=== PATIENT | female | born 1975 | race Caucasian/White ===

== ENCOUNTER → 2019-04-04 13:16 | Outpatient (CLI) | payer OTHER ==
--- NOTE | 2019-04-09 13:29 | ST ---
PATIENT:RAMSES GODDARD MEDICAL RECORD: [id number] SEX: F LOCATION:[facility] ORDER #: ADMISSION DATE: 04/04/19 AGE OF PATIENT: 43 REFERRING PHYSICIAN: INTERPRETING PHYSICIAN: ALKA DIEGO MD DATE OF SERVICE: 04/04/2019 PROCEDURE: Treadmill stress test. TECHNIQUE: Bassline ECG is normal. Exercise for 9 minutes and 30 seconds on Yaya protocol. Maximum heart rate 163 beats per minute, greater than 85% maximum predicted. No ECG changes for ischemia. No symptoms of ischemia. Normal blood pressure response to exercise. No arrhythmias noted. Good exercise tolerance for age. TRANSINT:[id number] Voice Confirmation ID: [id number] DOCUMENT ID: [id number] ALKA DIEGO MD at 1329 CC: [id number] DICTATION DATE: 04/05/19 1301 KEY ACCOUNT REPRESENTATIVE: 04/06/19 0621 DEP CLI 04/04/[address] [id number]
--- NOTE | 2019-04-09 13:29 | EC ---
PATIENT:RAMSES GODDARD DATE OF SERVICE: 04/04/19 SEX: F MEDICAL RECORD: [id number] DATE OF : 71 LOCATION:[facility] AGE OF PATIENT: 43 ADMISSION DATE: 04/04/19 REFERRING PHYSICIAN: INTERPRETING PHYSICIAN: ALKA DIEGO MD ECHOCARDIOGRAM REPORT ECHO CHARGES 4 ECHO COMPLETE Date: 04/04/19 CLINICAL DIAGNOSIS: HEART MURMUR ECHOCARDIOGRAPHIC MEASUREMENTS (adult normal given) AC root (d.<3.7cm) 2.6 cm LV Septum d (<1.2 cm> 0.90 cm Valve Excursion 1.1 cm LV Septum (systole) 1.2 cm Left Atria (s.<4.0cm> 2.8 cm LVPW d(<1.2cm) 1.0 cm RV (d.<2.3cm) 3.6 cm LVPW (sytole) 1.8 cm LV diastole(<5.6CM) 3.9 cm MV E-F(>70mm/sec) cm LV systole 2.2 cm LVOT Diameter 1.9 cm MV exc.(>10mm) 1.0 cm Est.ejection fraction (50-75%) % DOPPLER: LVIT cm/sec A 72.0 cm/sec E 121 cm/sec LA cm/sec RVSP 33 mmHg LVOT 139 cm/sec AOP1/2T m/s Asc. Ao 161 cm/sec RVOT 92 cm/sec RA cm/sec PA 105 cm/sec AV Gradient Peak 10.34mmHg AV Mean 5.35 mmHg AV Area 2.2 cm MV Gradient Peak 8.68 mmHg MV Mean 2.35 mmHg MV Area cm COMMENTS: Finishing Range Supervisor: 2 EDINSON HUGHES Manager Lab: 3 Dr. Pozo TAPE# PACS Pericardial Effusion N DATE OF SERVICE: Adequate 2D, color flow, spectral Doppler, and M-mode. No LVH. LV internal dimension is normal. Wall motion is normal. EF is greater than or equal to 55%. Aortic valve is tricuspid. No evidence of stenosis by Doppler interrogation. Left atrium normal at 2.8 cm. Mitral valve shows no prolapse. Trace MR. Right-sided chambers grossly normal. Trace TR. TRANSINT:[id number] Voice Confirmation ID: [id number] DOCUMENT ID: [id number] ECHOCARDIOGRAM REPORT [id number] RAMSES GODDARD ALKA DIEGO MD at 1329 CC: [id number] DICTATION DATE: 04/05/19 1311 ARCHITECT MARINE: 04/05/19 1329 DEP CLI 04/04/19 [id number] [place] [address]
== END | disposition home or self-care (01) ==
LOC: D.HCCECHO 13:16
PROVIDERS: ATTEND Internal Medicine Interventional Cardiology
DX: R01.1 Cardiac murmur, unspecified (principal)

== ENCOUNTER → 2019-04-17 09:11 | Outpatient (CLI) | payer OTHER | END | disposition home or self-care (01) | LOC: D.OPS 09:11 | PROVIDERS: ATTEND Surgery | DX: K44.9 Diaphragmatic hernia without obstruction or gangrene (principal) ==

== ENCOUNTER 2019-06-13 07:49 | Inpatient (IN) | payer OTHER ==
[~2019-06-13] VITALS: Ht 167.6 cm; Wt 76.4 kg
[2019-06-15] MEDS ORDERED: NEXIUM40 MG PO (08:24)
[2019-06-15] MEDS ORDERED: LISINOPRIL-HCT1 EAC4 PO (08:24)
[2019-06-15] MEDS ORDERED: PRAVACHOL40 MG PO (08:25)
[2019-06-15 09:09] LABS: HEMATOCRIT 42.2 % (36.0-48.0); HEMOGLOBIN 14.2 g/dL (12-16); MCH 30.9 pg (26.0-34.0); MCHC 33.6 g/dL (31.0-37.0); MCV 91.9 fL (80.0-100.0); MEAN PLATELET VOLUME 8.9 fL (7.4-10.4); RBC 4.59 10x6/uL (4.00-5.40); RDW 12.4 % (11.5-14.5); WBC 7.6 10x3/uL (4.8-10.8)
[2019-06-15 09:12] LABS: CALC OSMOLALITY 278 mosm/kg (275-300); CALCIUM 8.8 mg/dL (8.5-10.1); CARBON DIOXIDE 32.3 mmol/L (21.0-32.0); CHLORIDE - SERUM 104 mmol/L (98-107); CREATININE - SERUM 0.8 mg/dL (0.6-1.3); GLUCOSE 88 mg/dL (74-106); POTASSIUM - SERUM 3.9 mmol/L (3.5-5.1); SODIUM 140 mmol/L (136-145); UREA NITROGEN 15 mg/dL (7-18); eGFR NON AFRICAN AMERICAN 82 mL/min (90-120)
[2019-06-18] MEDS ORDERED: COLACE100 MG PO (06:15)
[2019-06-18 06:17] VITALS: BP 104/68; BMI 27.1
--- NOTE | 2019-06-18 09:45 | NUR ---
OPA IN AIRWAY ON ADMIT
--- NOTE | 2019-06-18 10:18 | NUR ---
EKG ORDERED FOR PT. C/O CHEST PAIN PER DR FLORES. EKG COMPLETE @1007 NORMAL SINUS
--- NOTE | 2019-06-18 10:45 | NUR ---
REC'D TO ROOM 2236 EASILY TO AROUSED WHEN NAME IS CALLED. RESP EVEN AND UNLABORED WITH NO DISTRESS NOTED. CAN EXPRESS NEEDS AND WANTS. C/O ABD PAIN RATING 8/10 ON PAIN SCALE. WAS MEDICATED WITH TORADOL @ 0945 IN SURGERY. C/L AND AT BEDSIDE.
[2019-06-18 10:48] VITALS: BP 116/67
[2019-06-18 12:43] VITALS: BP 126/53
--- NOTE | 2019-06-18 19:20 | NUR ---
UP IN BED. ALERT AND ORIENTED TIMES 4. ABLE TO VOICE ALL NEEDS. COMPLAINS OF GONZALEZ AT THIS TIME. TYLENOL WILL BE GIVEN ACCORDING TO MAR. IV TO RIGHT AC IS PATENT WITH FLUIDS INFUSING PER ORDERS VIA PUMP. WILL NOTE ANY CHANGE.
[2019-06-18 20:00] VITALS: BP 121/66
--- NOTE | 2019-06-18 20:13 | NUR ---
I have reviewed this patient and I concur with the Shift Assessment completed by the Licensed Practical Nurse today this shift.
[2019-06-18 20:14] VITALS: BP 116/67; Ht 167.6 cm; Wt 76.4 kg
[2019-06-19] VITALS: BP 120/71
--- NOTE | 2019-06-19 03:02 | NUR ---
I have reviewed this patient and I concur with the Shift Assessment completed by the Licensed Practical Nurse today this shift.
--- NOTE | 2019-06-19 03:30 | NUR ---
COMPLAINTS OF PAIN TO HEAD, NECK, SHOULDER AREA, TREATED WITH PAIN MEDICATION PER MAR. HAS NOT RESTED WELL THIS SHIFT, SOME NAUSEA NOTED. WILL NOTE ANY CHANGE.
[2019-06-19 04:00] VITALS: BP 125/86
[2019-06-19 04:39] LABS: BASOPHILS 0.1 % (0-2); EOSINOPHILS 0.1 % (0-7); HEMATOCRIT 36.4 % (36.0-48.0); HEMOGLOBIN 12.3 g/dL (12-16); IMMATURE GRANULOCYTES 0.2 % (0-5); LYMPHOCYTES 10.3 % (15-50); MCH 30.6 pg (26.0-34.0); MCHC 33.8 g/dL (31.0-37.0); MCV 90.5 fL (80.0-100.0); MEAN PLATELET VOLUME 9.2 fL (7.4-10.4); MONOCYTES 6.3 % (2-11); PLATELET COUNT 283 10x3/uL (130-400); RBC 4.02 10x6/uL (4.00-5.40); RDW 12.5 % (11.5-14.5); WBC 14.8 10x3/uL (4.8-10.8)
[2019-06-19 05:01] LABS: ALBUMIN 3.1 g/dL (3.4-5.0); ANION GAP 12.1 mmol/L (8-16); BILIRUBIN - TOTAL 0.48 mg/dL (0.2-1.3); CALCIUM 8.2 mg/dL (8.5-10.1); CARBON DIOXIDE 27.8 mmol/L (21.0-32.0); CREATININE - SERUM 0.9 mg/dL (0.6-1.3)
[2019-06-19 05:05] LABS: POTASSIUM - SERUM 2.9 mmol/L (3.5-5.1)
--- NOTE | 2019-06-19 07:28 | NUR ---
PT SITTING UP IN BED WITH SPOUSE AT BEDSIDE. RESP EVEN AND UNLABORED. PT REQUESTING INFORMATION REGARDING TIME SWALLOW STUDY WILL BE PERFORMED. INSTRUCTED PT TO REMAIN NPO UNTIL FOLLOWING PROCEDURE. PT VOICES UNDERSTANDING. IV TO RIGHT AC WITH LR @ 75ML/HR INFUSING VIA PUMP. SITE WITHOUT REDNESS OR EDEMA. LAP SITES X 4 TO ABDOMEN, BS HYPOACTIVE. DENIES FURTHER NEEDS AT THIS TIME. CL WITHIN REACH. ENCOURAGED TO CALL WITH NEEDS. CONTINUE POC
[2019-06-19] MEDS ORDERED: ZOFRAN ODT4 MG/UDTAB PO (08:50)
[2019-06-19] MEDS ORDERED: HYDROCODON-ACE1 EAC7 PO (08:50)
== END 2019-06-19 10:29 | disposition home or self-care (01) | DRG 328 ==
LOC: D.SDCHOLD 06-18 08:00 → D.MS 06-18 10:22
PROVIDERS: Anesthesiology; ADMIT Surgery; ATTEND Surgery
PROC: 0BQT4ZZ Repair Diaphragm, Percutaneous Endoscopic Approach (ICD-10-PCS; principal; 2019-06-18 08:00)
PROC: 0DV44CZ Restriction of Esophagogastric Junction with Extraluminal Device, Percutaneous Endoscopic Approach (ICD-10-PCS; 2019-06-18 08:00)
DX: K44.9 Diaphragmatic hernia without obstruction or gangrene (principal); K21.9 Gastro-esophageal reflux disease without esophagitis; I10 Essential (primary) hypertension